=== PATIENT | male | born 1965 | race Caucasian/White ===

== ENCOUNTER 2019-04-24 09:54 | Emergency (ER) | payer SELFPAY ==
[~2019-04-24] VITALS: Ht 165.1 cm; Wt 93.0 kg
[2019-04-24 10:00] VITALS: BP_SYST 163
--- NOTE | 2019-04-24 10:00 | NUR ---
Patient to ER bed 5 to gown for evaluation. Side rails up. Report given to JATIN Perez.
--- NOTE | 2019-04-24 10:05 | NUR ---
Patient arrived in the ED c/o bodyaches, chills, cold sweats, cough, chest congestion, sinus congestion. Patient is alert and oriented x4, ambulating with a steady gait, speaking in full sentences. VSS, pain level 0/10 - Taking Advil, no relief per patient. Informed of the wait time. Instructed to notify ED staff for any changes in condition or worsening of symptoms while waiting to be seen by a provider. Patient verbalized understanding.
--- NOTE | 2019-04-24 10:17 | NUR ---
ER Dr. Terry at bedside examining patient.
[2019-04-24] MEDS ORDERED: NACL 0.9% 1,000 ML IV ONE (10:19)
--- NOTE | 2019-04-24 10:19 | NUR ---
Patient moved to room 7.
[2019-04-24] MEDS ORDERED: methylPREDNISolone SOD SUCC/PF 62.5 MG/ML VIAL IVP ONE (10:30)
[2019-04-24] MEDS ORDERED: IPRATROPIUM BROM 0.5 MG/2.5 ML VIAL.NEB (ATROVENT) INH ONE (10:30)
[2019-04-24] MEDS ORDERED: ALBUTEROL SULFATE 0.083% 2.5 MG/3 ML VIAL.NEB INH ONE (10:30)
--- NOTE | 2019-04-24 10:40 | NUR ---
# 18 gauge angiocath placed to LAC. Use of asceptic technique. Opsite placed over site. Blood return noted. Blood for lab drawn from site. Flushed with 10 cc of normal saline. No evidence of infiltration noted. Patient tolerated well.
--- NOTE | 2019-04-24 10:41 | NUR ---
Administered Solumedrol IVP as ordered by Dr. Terry. Patient tolerated the medications well. Please refer to eMAR for more details.
--- NOTE | 2019-04-24 10:45 | NUR ---
RT at bedside administering nebulizer treatment. Patient tolerated the medications well.
[2019-04-24 11:07] LABS: BASOPHILS % (AUTO) 0.5 % (0.0-2.0); EOSINOPHILS # (AUTO) 0.1 K/uL (0.0-0.4); EOSINOPHILS % (AUTO) 1.5 % (0.0-4.0); HEMATOCRIT 42.9 % (36-54); HEMOGLOBIN 14.8 g/dL (14.0-18.0); LYMPHOCYTES # (AUTO) 1.3 K/uL (1.0-5.5); LYMPHOCYTES % (AUTO) 13.6 % (20.5-51.5); MEAN CORPUSCULAR HEMOGLOBIN 30 pg (27-31); MEAN CORPUSCULAR HGB CONC 35 % (32-36); MEAN CORPUSCULAR VOLUME 86 fL (79.0-98.0); MONOCYTES # (AUTO) 0.6 K/uL (0.0-1.0); MONOCYTES % (AUTO) 5.7 % (1.7-9.3); NEUTROPHILS # (AUTO) 7.8 K/uL (1.8-7.7); NEUTROPHILS % (AUTO) 78.7 % (40.0-70.0); PLATELET COUNT (AUTO) 276 K/uL (130-430); RED BLOOD CELL COUNT(AUTO) 4.98 MIL/uL (4.2-6.2); RED CELL DISTRIBUTION WIDTH 13.4 % (9.0-15.0); WHITE BLOOD COUNT (AUTO) 9.9 K/uL (4.8-10.8)
[2019-04-24 11:27] LABS: PROTHROMBIN TIME 10.3 SECS (9.5-12.5)
[2019-04-24 11:28] LABS: CALCIUM 8.1 mg/dL (8.4-11.0); CREATININE 0.94 mg/dL (0.55-1.30); POTASSIUM 3.6 mmol/L (3.5-5.1)
[2019-04-24 11:34] LABS: TOTAL BILIRUBIN 0.5 mg/dL (0.0-1.0)
--- NOTE | 2019-04-24 11:38 | NUR ---
ECG done at bedside as ordered by Dr. Terry. Report given to MD. Patient tolerated the procedure well.
--- NOTE | 2019-04-24 12:08 | NUR ---
Patient given written and verbal discharge instructions and verbalizes understanding. ER MD discussed with patient the results and treatment provided. Patient in stable condition. ID arm band removed. Rx of Azithromax, Tylenol and Robitussin given. Patient educated on pain management and to follow up with PMD. Pain Scale 0/10. Opportunity for questions provided and answered. Medication side effect fact sheet provided.
[2019-04-24 12:15] VITALS: BP_SYST 144
== END 2019-04-24 12:08 | disposition home or self-care (01) ==
LOC: SED 09:54
DX: J20.9 Acute bronchitis, unspecified (principal); F17.290 Nicotine dependence, other tobacco product, uncomplicated
CPT/HCPCS: 36415; 71045; 80053; 82550; 83605; 83690; 84484; 85025; 85610; 85730; 86710; 87040; 93005; 94640; 96374; 99284; J2930; J7030; J7613